=== PATIENT | female | born 1985 | race Caucasian/White ===

== ENCOUNTER → 2018-10-27 | Outpatient (CLI) | payer BC ==
[~2018-10-27] MED LIST: LVT.05T PO; SULF1TAB38 PO
--- NOTE | 2018-10-27 08:59 | Diagnostic Imaging Report ---
PROCEDURE: CT sinuses without contrast TECHNIQUE: Multiple contiguous axial images were obtained through the sinuses without the use of intravenous contrast. Coronal and sagittal reformations were then performed. Auto Exposure Controls were utilized during the CT exam to meet ALARA standards for radiation dose reduction. INDICATION: Sinus pain above the right eye. The frontal sinuses clear. Ethmoid air cells and sphenoid sinus are clear. Bilateral maxillary sinuses are clear. No mucosal thickening or air-fluid level is seen. Ostiomeatal complexes are patent bilaterally. There is some nasal septal deviation to the right. Mastoids are well aerated. IMPRESSION: No evidence of sinusitis. Dictated by: Dictated on workstation # [id number]
== END ==
LOC: RAD 07:33
PROVIDERS: ATTEND Internal Medicine
DX: J34.89 Other specified disorders of nose and nasal sinuses (principal)
CPT/HCPCS: 70486

== ENCOUNTER 2018-12-11 14:12 | Outpatient (RCR) | payer BC ==
[2018-12-11 14:44] LABS: BASOPHILS % (AUTO) 0 % (0-10); EOSINOPHILS # (AUTO) 0.1 10^3/uL (0.0-0.3); EOSINOPHILS % (AUTO) 2 % (0-10); HEMATOCRIT 37 % (35-52); HEMOGLOBIN 12.5 G/DL (11.5-16.0); LYMPHOCYTES % (AUTO) 35 % (12-44); MEAN CORPUSCULAR HEMOGLOBIN 29 PG (25-34); MEAN CORPUSCULAR HGB CONC 33 G/DL (32-36); MEAN CORPUSCULAR VOLUME 88 FL (80-99); MEAN PLATELET VOLUME 9.9 FL (7.4-10.4); MONOCYTES # (AUTO) 0.7 X 10^3 (0.0-1.0); MONOCYTES % (AUTO) 9 % (0-12); NEUTROPHILS # (AUTO) 4.7 X 10^3 (1.8-7.8); NEUTROPHILS % (AUTO) 55 % (42-75); PLATELET COUNT 424 10^3/uL (130-400); WHITE BLOOD COUNT 8.6 10^3/uL (4.3-11.0)
[2018-12-11 15:02] LABS: ALANINE AMINOTRANSFERASE 17 U/L (0-55); ALBUMIN 3.8 GM/DL (3.2-4.5); ALKALINE PHOSPHATASE 39 U/L (40-136); BILIRUBIN,TOTAL 0.2 MG/DL (0.1-1.0); BUN/CREATININE RATIO 13; CALCIUM 9.7 MG/DL (8.5-10.1); CARBON DIOXIDE 25 MMOL/L (21-32); CHLORIDE 103 MMOL/L (98-107); GFR ESTIMATED > 60; GLUCOSE 102 MG/DL (70-105); POTASSIUM 3.8 MMOL/L (3.6-5.0); SODIUM 136 MMOL/L (135-145); TOTAL PROTEIN 6.5 GM/DL (6.4-8.2)
== END 2019-03-11 | disposition home or self-care (01) ==
LOC: ONC 14:12
PROVIDERS: ATTEND Internal Medicine Hematology & Oncology
DX: D84.9 Immunodeficiency, unspecified (principal); J32.1 Chronic frontal sinusitis; I10 Essential (primary) hypertension; E78.5 Hyperlipidemia, unspecified; E03.9 Hypothyroidism, unspecified; J45.909 Unspecified asthma, uncomplicated; F17.210 Nicotine dependence, cigarettes, uncomplicated; E66.9 Obesity, unspecified; Z68.41 Body mass index [BMI] 40.0-44.9, adult; Z79.899 Other long term (current) drug therapy
CPT/HCPCS: 36415; 80053; 81270; 82784; 85025; 99214

== ENCOUNTER → 2019-06-17 | Outpatient (CLI) | payer BC ==
--- NOTE | 2019-06-17 16:06 | Diagnostic Imaging Report ---
PROCEDURE: MR imaging of the brain without contrast. TECHNIQUE: Multiplanar, multisequence MR imaging of the brain was performed without contrast. INDICATION: Right-sided headache. COMPARISON: No prior studies are available for comparison. FINDINGS: The ventricles and sulci are within normal limits. No sulcal effacement or midline shift is detected. No acute intra-axial or extra-axial hemorrhage is detected. No diffusion restriction is seen to suggest acute ischemia. The normal expected flow-voids within the carotid siphons are seen. Corpus callosum is unremarkable. Sella and parasellar structures are unremarkable. IMPRESSION: Unremarkable noncontrast MRI of the brain. Dictated by: Dictated on workstation # [id number]
== END ==
LOC: RAD 12:25
PROVIDERS: ATTEND Psychiatry & Neurology Neurology
DX: R51 Headache (principal)
CPT/HCPCS: 70551

== ENCOUNTER → 2020-08-10 | Outpatient (CLI) | payer BC ==
--- NOTE | 2020-08-10 15:42 | Diagnostic Imaging Report ---
PROCEDURE: Pelvic comp/transvaginal sonogram. TECHNIQUE: Complete transabdominal and transvaginal pelvic ultrasound was performed. In addition, limited pelvic Doppler was performed. INDICATION: Abnormal uterine bleeding. The uterus is anteverted measuring 9.3 x 6.7 x 7.9 cm. There is a probable fibroid in the left uterus measuring 5.8 x 5.3 x 4.6 cm. Endometrium is obscured. The right ovary measures 2.4 x 1.7 x 1.1 cm and left ovary measures 2.2 x 1.4 x 1.2 cm. Ovaries demonstrate blood flow. No adnexal mass or free fluid is detected. IMPRESSION: Large uterine fibroid obscuring the endometrium. No other significant abnormality is detected. Dictated by: Dictated on workstation # [id number]
== END ==
LOC: RAD 14:30
PROVIDERS: ATTEND Obstetrics & Gynecology
DX: D25.9 Leiomyoma of uterus, unspecified (principal)
CPT/HCPCS: 76830; 76856

== ENCOUNTER 2020-11-02 11:00 | Outpatient (CLI) | payer BC ==
[~2020-11-02] VITALS: Ht 160 cm; Wt 93.2 kg
[2020-11-02] MEDS ORDERED: CNC1KV IM (12:27)
[2020-11-02] MEDS ORDERED: TRAZ-227 PO (12:27)
[2020-11-02] MEDS ORDERED: SEMA0.25 SQ (12:27)
[2020-11-02] MEDS ORDERED: NORG1TAB14 PO (12:27)
[2020-11-02] MEDS ORDERED: CLN.1T PO (12:27)
[2020-11-02] MEDS ORDERED: METF-845 PO (12:27)
[2020-11-02] MEDS ORDERED: ARMO250T6 PO (12:27)
[2020-11-02] MEDS ORDERED: TRIA1TAB3 PO (12:27)
[2020-11-02] MEDS ORDERED: DULO60CA59 PO (12:27)
[2020-11-02] MEDS ORDERED: LOSA50TA63 PO (12:27)
== END 2020-11-02 12:41 | disposition home or self-care (01) ==
LOC: PREOP 11:00
PROVIDERS: ATTEND Obstetrics & Gynecology
DX: Z01.818 Encounter for other preprocedural examination (principal)

== ENCOUNTER 2020-11-15 06:12 | Day surgery (SDC) | payer BC ==
[~2020-11-15] VITALS: Ht 160 cm; Wt 93.5 kg
[2020-11-15] VITALS (10 sets, daily range): BP systolic 116–135; BP diastolic 71–86
[~2020-11-15 06:12] MED LIST changes: +ARMO250T6 PO; +CLN.1T PO; +CNC1KV IM; +DULO60CA59 PO; +LOSA50TA63 PO; +METF-845 PO; +NORG1TAB14 PO; +SEMA0.25 SQ; +TRAZ-227 PO; +TRIA1TAB3 PO
[2020-11-15] MEDS ORDERED: metroNIDAZOLE 500MG/100ML IVPB 100 ML IV ONE (06:15)
[2020-11-15] MEDS ORDERED: ceFAZolin INJECTION 1,000 MG in WATER (STERILE) FOR INJECTION 10 ML IV ONE (06:15)
[2020-11-15] MEDS: LACTATED RINGERS 1,000 ML IV PRN ×3 (06:23→10:37)
[2020-11-15] MEDS ORDERED: ROCURONIUM 10 MG/ML 5 ML SYRINGE IV ONE ×2 (06:48→08:17)
[2020-11-15] MEDS ORDERED: proPOfol 200 MG/20 ML (DIPRIVAN) VIAL IV ONE ×2 (06:48→08:56)
[2020-11-15] MEDS ORDERED: ONDANSETRON 4 MG/2 ML (SDV) Z0FRAN ONE (06:48)
[2020-11-15] MEDS ORDERED: MIDAZOLAM 2 MG/2 ML (VERSED) VIAL ONE (06:48)
[2020-11-15] MEDS ORDERED: fentaNYL INJ 100 MCG/2 ML AMP ONE (06:48)
[2020-11-15] MEDS ORDERED: LIDOCAINE PF 2% 5 ML (XYLOCAINE) VIAL ONE (06:48)
[2020-11-15] MEDS ORDERED: NEOSTIGMINE 3 MG/3 ML VIAL ONE (06:49)
[2020-11-15] MEDS ORDERED: SEVOFLURANE (ULTANE) 15 ML INHAL SOLN ONE ×8 (06:49→09:26)
[2020-11-15] MEDS ORDERED: GLYCOPYRROLATE 0.2 MG/ML (ROBINUL) 2 ML VIAL ONE (06:49)
[2020-11-15 07:03] LABS: BASOPHILS # (AUTO) 0.1 10^3/uL (0.0-0.1); BASOPHILS % (AUTO) 1 % (0-10); EOSINOPHILS # (AUTO) 0.2 10^3/uL (0.0-0.3); EOSINOPHILS % (AUTO) 2 % (0-10); HEMATOCRIT 41 % (35-52); HEMOGLOBIN 13.6 g/dL (11.5-16.0); LYMPHOCYTES # (AUTO) 4.1 10^3/uL (1.0-4.0); LYMPHOCYTES % (AUTO) 32 % (12-44); MEAN CORPUSCULAR HEMOGLOBIN 29 pg (25-34); MEAN CORPUSCULAR HGB CONC 33 g/dL (32-36); MEAN CORPUSCULAR VOLUME 88 fL (80-99); MEAN PLATELET VOLUME 9.7 fL (9.0-12.2); MONOCYTES # (AUTO) 0.9 10^3/uL (0.0-1.0); MONOCYTES % (AUTO) 7 % (0-12); NEUTROPHILS # (AUTO) 7.4 10^3/uL (1.8-7.8); NEUTROPHILS % (AUTO) 58 % (42-75); PLATELET COUNT 396 10^3/uL (130-400); WHITE BLOOD COUNT 12.7 10^3/uL (4.3-11.0)
[2020-11-15] MEDS ORDERED: LIDOCAINE/EPI 1%-1:100,000 (XYLOCAINE) 20ML ONE (07:08)
--- NOTE | 2020-11-15 07:38 | Progress Note-Pre Operative ---
Pre-Operative Progress Note H&P Reviewed The H&P was reviewed, patient examined and no changes noted. surgery was scheduled for 11/08/2020, but patient had sinusitis and had been started, the day before, on antibiotics and a steroid taper. She is feeling well today. Last dose of prednisone and antibiotics was Saturday. Date Seen by Provider: Nov 15, 2020 Time Seen by Provider: 07:30 Date H&P Reviewed: Nov 15, 2020 Time H&P Reviewed: 07:25 Pre-Operative Diagnosis: uterine fibroids, menorrhagia ANGELA TURNER DO Nov 15, 2020 07:38
[2020-11-15] MEDS ORDERED: HYDROmorphone 2 MG/ML VIAL (DILAUDID) ONE (08:01)
[2020-11-15] MEDS ORDERED: PHENYLEPHRINE 100 MCG/ML 10 ML (ANESTHESIA) SYR ONE (10:02)
[2020-11-15] MEDS ORDERED: KETOROLAC 30 MG/ML VIAL ONE (10:03)
[2020-11-15] MEDS ORDERED: morphine INJ 4 MG/ML 1 ML (VIAL/SYRINGE) IVP PRN (10:15)
[2020-11-15] MEDS ORDERED: LACTATED RINGERS 1,000 ML IV SCH (10:15)
[2020-11-15] MEDS ORDERED: KETOROLAC 30 MG/ML VIAL IVP ONE (10:15)
[2020-11-15] MEDS ORDERED: ONDANSETRON 4 MG (ZOFRAN) ORAL DISSOLVE TAB PO PRN (10:15)
[2020-11-15] MEDS ORDERED: KETOROLAC 30 MG/ML VIAL IV SCH (10:15)
--- NOTE | 2020-11-15 10:15 | Operative Report ---
Operative Report Date of Procedure/Surgery Nov 15, 2020 Surgeon (s) ANGELA TURNER DO [employer] Supervisor (s): NA Post-Operative Diagnosis Uterus > 250 gram, adenomyosis, uterine fibroids, bilateral tubal cysts, endometriosis periovarian adhesions Procedure Performed RaTH, bilateral salpingectomy, myomectomy, fulgeration of endometriosis Description of Procedure Anesthesia Type: General Estimated blood loss (mL): 100 Specimen(s) collected/removed uterus, bilateral tubes Description of the Procedure After informed consent was obtained, patient was taken into the operating room where general anesthetic was found to be adequate. She was prepped and draped in the usual sterile fashion in the dorsal lithotomy position. A Kennedy catheter was placed. A speculum was placed in the vagina. The cervix was visualized and the anterior lip was grasped with a sharp toothed tenaculum. The uterus was sounded and depth was approximately 10 centimeters. I placed the Celsa device (10 cm) and a 3.0 cm collar was advanced over the cervix. I inserted the Celsa without difficulty, inflating the balloon and securing it around the fornix of the cervix. The collar was then secured with sutures at 12 o'clock. Attention was then turned to the patient's abdomen. After injecting with 1% lidocaine with epinephrine, a supraumbilical incision was made about 8 mm. A Veress needle was inserted and I confirmed intraabdominal placement with a drop in pressure and the saline drop test. The opening pressure was 7 mmHg. I then insufflated the abdomen to a maximum of 15 mmHg with warmed CO2 gas. A survey of the pelvis was done and it was determined that the procedure could be done robotically. I then injected lidocaine for placement of the additional trocars. I placed an additional 8 mm trocar in the left abdomen lateral to the umbilicus approximately 15 cm. The second robotic port was placed about 12 cm lateral to the right placement. This was an 8 mm trocar. These were placed under direct visualization of the laparoscope. When all placements were confirmed, the patient was placed in steep Trendelenburg allowing adequate visualization and the robot was brought in for docking. The docking was accomplished without difficulty. I then took over the command of the robot utilizing the vessel sealer and monopolar michelle. She did have endometriosis and there were some periovarian and peritubal adhesions due to this. there was no reason to do an oophorectomy, however. I was able to visualize the round ligaments bilaterally and grasped them and cauterized with bipolar cautery and then cut with my michelle. At this point, I then did bilateral salpingectomy. It was noted that there was a "mass" in the right mesosalpinx. Initially it looked solid and smooth. With closer inspection and with palpation, it was determined that this was a cystic lesion, but was large (3-4 cm). There was an additional, similar but much smaller, cystic lesion in the left mesosalpinx. I then incised the mesosalpinx with the michelle. I dissected the ovary off the ovarian fossa on the left, where it was ad herent with endometriosis. There were some implants beneath this, in the fossa, and these were fulgerated. Then, I grasped with cornu and transected bilaterally using the vessel sealer. I then moved my dissection to the posterior leaves of the broad ligament. I dissected the posterior leaves of the broad ligament off the uterine arteries skeletonizing them bilaterally. I then took a second clamp with the bipolar cautery and with the michelle, transected the vessels away from the lateral aspect to the cervical stroma. I made sure to dissect the peritoneum off the underlying tissue where there were adhesions noted on the uterosacral ligaments, so that this tissue was not left inside, but went with the uterus specimen. I dissected the anterior peritoneum off the lower uterine segment. I continually pushed the bladder back and I took excessively great care and I was eventually able to dissect the vesicouterine peritoneum off the lower uterine segment. I then dissected in a V fashion towards the midline between the uterosacral ligaments. This allowed me to skeletonize the uterine vessels bilaterally. The balloon on the CELSA was insufflated. This allowed me to see the CELSA circumferentially. I then performed a colpotomy anteriorly and then amputate with cervix away from the vaginal fornix. Again, there were some endometrial implants. I then continued the colpotomy circumferentially making sure to include the implants with the portion that was removed. Once this was performed, as the uterus was quite large and globular, it could not be removed without decreasing the size. With the assistance of the michelle and the bipolar clamp I was able to dissect down to the large central uterine fibroid and wedge the uterus. Essentially the uterus was divided into two smaller portions. The uterus was then able to be removed through the vaginal cuff and the assistant designer removed the uterus, tubes and ovaries through the vagina. She then left a sponge in the vagina to maintain the pneumoperitoneum. The pelvis was now copiously irrigated with sterile water. There was good hemostasis noted. I then began closure of the vaginal cuff. I closed the apices of the vaginal cuff with 2-0 Vicryl V lock sutures with a colposuspension through the uterosacral ligaments. This suspended the apices of the vaginal cuff. I extended this to the midline from both sides and overlapped the V lock sutures in the midline. Excellent closure is noted and hemostasis is achieved. All the needles were removed from the patient's abdomen. Now, the robotic instruments were removed and the robot was docked back to laparoscopy. The pelvis was irrigated. There was no active bleeding noted. Bilateral ureters were seen the entire time during the surgery and were peristalsing. There was no excessive bleeding noted. However, due to the extra dissection of the endometrial implants off of the underlying peritoneum, I placed Surgiflo to prevent excessive bleeding. The trocars were removed under direct visualization. The laparoscopic sites were visualized and found to be hemostatic. The trocar sites were injected with 0.1% lidocaine. The skin incisions were closed with 4-0 Monocryl in a subcuticular fashion and then with Dermabond. Op sites were placed over the incision sites. The instruments were removed from the vagina and I noted there were no abrasions. Sponge, lap, needle and instrument counts correct times two. Patient was awakened and taken to recovery in a stable condition. Findings of the Procedure enlarged, boggy uterus, uterine fibroids, soft tubal/mesosalpinx cyst on right approx 3 cm, left < 1 cm endometriosis both ovaries, left ovary stuck to the ovarian fossa, posterior culdesac uterosacral ligaments. Allergies and Home Medications Allergies Coded Allergies: Penicillins (Verified Allergy, Unknown, childhood rx, 11/15/20) Home Medications Acetaminophen 500 Mg Tablet, 1,000 MG PO Q8HR Prescribed by: ANGELA TURNER on 11/15/20 1036 Armodafinil 250 Mg Tablet, 125 MG PO DAILY, (Reported) take 1/2 of 250mg tab Clonidine HCl 0.1 Mg Tablet, 0.1 MG PO BID, (Reported) Cyanocobalamin 1,000 Mcg/Ml Inj, 1,000 MCG IM WEEK, (Reported) Duloxetine HCl 60 Mg Capsule.dr, 60 MG PO DAILY, (Reported) Ibuprofen 600 Mg Tablet, 600 MG PO Q6HR Prescribed by: ANGELA TURNER on 11/15/20 1036 Losartan Potassium 50 Mg Tablet, 50 MG PO DAILY, (Reported) Metformin HCl 500 Mg [id number], 500 MG PO DAILY, (Reported) Oxycodone Hcl 5 Mg Tab, 5 MG PO Q4HR Prescribed by: ANGELA TURNER on 11/15/20 1036 Semaglutide 0.25 Mg/0.2 Ml Pen.injctr, 0.5 MG SQ WEEK, (Reported) Trazodone HCl 100 Mg Tablet, 100 MG PO HS, (Reported) Triamterene/Hydrochlorothiazid 1 Each Tablet, 1 EACH PO DAILY, (Reported) Patient Home Medication List Home Medication List Reviewed: Yes ANGELA TURNER DO Nov 15, 2020 10:15
[2020-11-15] MEDS ORDERED: OXC5T PO (10:36)
[2020-11-15] MEDS ORDERED: ACET-93 PO (10:36)
[2020-11-15] MEDS ORDERED: IBUP-844 PO (10:36)
[2020-11-15] MEDS ORDERED: SUGAMMADEX 500 MG/5 ML VIAL (BRIDION) IV ONE (10:37)
[2020-11-15] MEDS ORDERED: fentaNYL INJ 100 MCG/2 ML AMP IVP ONE (10:45)
[2020-11-15] MEDS ORDERED: morphine INJ 10 MG/ML 1ML (SYR OR VIAL) IVP ONE (10:45)
[2020-11-15] MEDS ORDERED: ONDANSETRON 4 MG/2 ML (SDV) Z0FRAN IVP PRN (10:45)
[2020-11-15] MEDS ORDERED: IBUPROFEN 600 MG (MOTRIN) TAB PO SCH (12:00)
[2020-11-15] MEDS ORDERED: ACETAMINOPHEN 500 MG TAB (TYLENOL) PO SCH (14:00)
[2020-11-15] MEDS ORDERED: traZODone 50 MG (DESYREL) TAB PO SCH (21:00)
--- NOTE | 2020-11-16 06:48 | Anesthesia-General Post-Op ---
General Patient Condition Mental Status/LOC: Same as Preop Cardiovascular: Satisfactory Nausea/Vomiting: Absent Respiratory: Satisfactory Pain: Controlled Complications: Absent Post Op Complications Complications None Follow Up Care/Instructions Patient Instructions None needed. Anesthesia/Patient Condition Patient Condition Patient is doing well, no complaints, stable vital signs, no apparent adverse anesthesia problems. No complications reported per nursing. BISI FRYE CRNA Nov 16, 2020 06:48
== END 2020-11-15 16:52 | disposition home or self-care (01) ==
LOC: SDC 06:12 → WS 11:20 → SDC 16:52
PROVIDERS: ATTEND Obstetrics & Gynecology
DX: D25.1 Intramural leiomyoma of uterus (principal); D25.0 Submucous leiomyoma of uterus; D25.2 Subserosal leiomyoma of uterus; N83.8 Other noninflammatory disorders of ovary, fallopian tube and broad ligament; N80.0 Endometriosis of uterus; N73.6 Female pelvic peritoneal adhesions (postinfective); I10 Essential (primary) hypertension; J45.909 Unspecified asthma, uncomplicated; G47.33 Obstructive sleep apnea (adult) (pediatric); F32.9 Major depressive disorder, single episode, unspecified; E11.9 Type 2 diabetes mellitus without complications; E66.9 Obesity, unspecified; Z68.36 Body mass index [BMI] 36.0-36.9, adult; Z79.84 Long term (current) use of oral hypoglycemic drugs; Z88.0 Allergy status to penicillin; Z87.891 Personal history of nicotine dependence
CPT/HCPCS: 36415; 84703; 85025; 86850; 86900; 86901; 87081; 88307